=== PATIENT | female | born 1945 | race Caucasian/White ===

== ENCOUNTER 2019-07-28 21:42 | Emergency (ER) | payer MEDICARE, SELFPAY ==
--- NOTE | ~2019-07-28 | XR_ITS ---
EXAMINATION: XR chest 2V DATE: 07/28/2019 23:05 INDICATION: Hypertension. TECHNIQUE: Frontal and lateral views of the chest were obtained. COMPARISON: None. FINDINGS: The chest demonstrates clear lungs without pneumonia, pleural effusion, or pneumothorax. Th e heart size is normal. IMPRESSION: 1. No acute cardiopulmonary disease. Reviewed, dictated and finalized at location A.
[2019-07-28 21:43] VITALS: BP 195/81; PULSE 81; RESP 16; TEMP 37.2; O2SAT 100
[2019-07-28 21:55] VITALS: PULSE 71; RESP 16; O2SAT 100
--- NOTE | 2019-07-28 22:01 | ED.GENADULT ---
HPI - General Adult General Chief complaint: Recheck/Abnormal Lab/Rx Stated complaint: not feeling well, blood pressure of the charts Time Seen by Provider: 07/28/19 22:00 Source: patient and family Mode of arrival: ambulatory Limitations: no limitations History of Present Illness HPI narrative: Patient is a 74-year-old female who presents for evaluation of feeling unwell earlier this evening, when she took her blood pressure at home she noticed it was elevated. Patient does not have a history of hypertension, states that her blood pressure typically runs in the 1 teens to 120s. She has never been on medication for hypertension. Patient states she denies any head, chest pain, lightheadedness, dizziness, palpitations, abdominal pain or shoulder pain. No shortness of breath. Patient states she feels somewhat jittery and stressed, but denies any other symptoms. Review of Systems Review of Systems: Narrative: CONSTITUTIONAL: Denies fever CARDIOVASCULAR: Denies chest pain RESPIRATORY: Denies cough or dyspnea. GASTROINTESTINAL: Denies abdominal pain SKIN: Denies rash MUSCULOSKELETAL: Denies back pain NEUROLOGIC: Denies headache PMFSH Past Medical History Medical History (Updated 07/28/19 @ 23:58 by Sammie Villatoro MD) Anemia Osteoporosis Social History Social History (Updated 07/28/19 @ 22:33 by Sammie Villatoro MD) Smoking status: Never smoker Substance use: never Living arrangements: with family Occupation/Education: retired Gender identity (if verbalized by the patient): Female Exam Narrative: Exam Narrative: GENERAL: Awake, alert, conversant HEAD: Normocephalic, atraumatic. EYES: PERRLA and EOMI. ENT: Nares clear, no rhinorrhea or epistaxis. Mucous membranes moist. NECK: Supple. CHEST: No respiratory distress, breathing even and non labored HEART: Regular rate, sinus rhythm ABDOMEN:Non distended, non tender EXTREMITIES: Normal range of motion. No edema. SKIN: Warm, dry, no rash. NEURO:No focal deficits. Alert and oriented x3, ambulatory with a narrow base, steady gait. Course Vital Signs Vital signs: Vital Signs Temperature 37.2 C 07/28/19 21:43 Pulse Rate 81 07/28/19 21:43 Respiratory Rate 16 07/28/19 21:43 Blood Pressure 195/81 H 07/28/19 21:43 Pulse Oximetry 100 07/28/19 21:43 Temperature 37.2 C 07/28/19 21:43 Pulse Rate 69 07/28/19 23:25 Respiratory Rate 16 07/28/19 23:25 Blood Pressure 148/82 H 07/28/19 23:25 Pulse Oximetry 99 07/28/19 23:25 Medical Decision Making MDM Narrative Medical decision making narrative: Patient presented to the emergency department for evaluation of high blood pressure readings at home. At the time of assessment, patient is hemodynamically stable with elevated blood pressure readings. These down trended after a short period of observation without medications. Patient without signs of malignant hypertension, no symptoms that would be consistent with hypertensive crisis. No acute kidney injury, no proteinuria or elevation in troponin. Patient may follow-up with her primary care provider and discuss her blood pressure management with her physician. Vital Signs Vital Signs: Vital Signs Temperature 37.2 C 07/28/19 21:43 Pulse Rate 81 07/28/19 21:43 Respiratory Rate 16 07/28/19 21:43 Blood Pressure 195/81 H 07/28/19 21:43 Pulse Oximetry 100 07/28/19 21:43 Temperature 37.2 C 07/28/19 21:43 Pulse Rate 69 07/28/19 23:25 Respiratory Rate 16 07/28/19 23:25 Blood Pressure 148/82 H 07/28/19 23:25 Pulse Oximetry 99 07/28/19 23:25 Lab Data Lab results reviewed: Yes I reviewed the patient's lab results. Result diagrams: 07/28/19 22:48 07/28/19 22:48 Labs: Lab Results 07/28/19 07/28/19 07/28/19 Range/Units 22:48 22:48 22:48 WBC 4.5 (4.5-10.0) K/mm3 RBC 4.17 L (4.2-5.4) M/mm3 Hgb 12.6 (12.0-15.0) g/dL Hct 39.0 (37.0-47.0) % MCV 93.5 (80-
[2019-07-28 22:19] VITALS: BP 182/82; PULSE 69; RESP 16; O2SAT 99
--- NOTE | 2019-07-28 22:31 | ECG_ITS ---
Measurements Intervals [employer] Rate: 75 P: 32 WI: 132 QRS: -13 QRSD: 89 T: 73 QT: 377 QTc: 423 Interpretive Statements SINUS RHYTHM DELAYED PRECORDIAL R/S TRANSITION NONSPECIFIC ST & T-WAVE ABNORMALITY- HIGH LATERAL LEADS BORDERLINE ECG Electronically Signed On 07-29-2019 7:06:39 CDT by Priyank Cardoza D.O.
[2019-07-28 22:52] LABS: Basophils Percent Auto 0.9 % (0.2-1.2); Eosinophils Absolute Auto 0.1 K/mm3 (0-0.3); Hemoglobin 12.6 g/dL (12.0-15.0); Immature Granulocyte Absolute 0.01 K/mm3 (0.00-0.031); Immature Granulocyte Percent A 0.2 % (0-0.5); Lymphocytes Absolute Auto 1.33 K/mm3 (0.9-3.2); Lymphocytes Percent Auto 29.8 % (18.3-44.2); Mean Corpuscular HGB Conc 32.3 g/dl (32-36); Mean Corpuscular Hemoglobin 30.2 pg (26-34); Mean Corpuscular Volume 93.5 fl (80-100); Mean Platelet Volume 10.4 fl (7.4-10.4); Monocytes Absolute Auto 0.4 K/mm3 (0.1-0.6); Monocytes Percent Auto 8.9 % (2.6-8.5); Neutrophils Absolute Auto 2.6 K/mm3 (1.3-6.7); Neutrophils Percent Auto 58.2 % (45.5-73.1); Platelet Count Result 239 k/mm3 (150-375); Red Blood Count 4.17 M/mm3 (4.2-5.4); Red Cell Distribution Width 12.9 % (11.5-14.5); White Blood Count 4.5 K/mm3 (4.5-10.0)
[2019-07-28 23:03] LABS: INR 0.9; Partial Thromboplastin Time 25.7 SECONDS (22.3-36.8); Prothrombin Time 12.2 Seconds (11.1-14.7)
[2019-07-28 23:06] LABS: Blood Urea Nitrogen 22 mg/dL (7-17); Calcium 9.2 mg/dL (8.4-10.2); Carbon Dioxide 24 mmol/L (22-30); Chloride 107 mmol/L (98-107); Estimated Glomerular Filt Rate > 60; Glucose 103 mg/dL (65-105); Potassium 3.9 mmol/L (3.4-5.0); Sodium 140 mmol/L (137-145)
[2019-07-28 23:16] LABS: Add Urine Microscopic? YES; Appearance Urine Clear (Clear); Bacteria Urine Trace /hpf; Bilirubin Urine Negative (Negative); Blood Urine Negative (Negative); Color Urine Colorless (Yellow); Glucose Urine UA Negative (Negative); Ketones Urine Negative (Negative); Leukocyte Esterase Ur 2+ LEU/UL (Negative); Mucus Urine Rare /lpf; Nitrate Urine Negative (Negative); Protein Urine Negative (Negative); RBC Urine 0-2 /hpf (0-2); Specific Grav Ur 1.006 (1.001-1.035); Squamous Epithelial Cell Urine Rare /hpf (Few); Urobilinogen Urine Negative mg/dL (<2.0)
[2019-07-28 23:18] LABS: Troponin I < 0.012 ng/mL (0.000-0.034)
[2019-07-28 23:25] VITALS: BP 148/82; PULSE 69; RESP 16; O2SAT 99
[2019-07-29 00:26] VITALS: BP 142/80; PULSE 71; RESP 16; TEMP 36.6; O2SAT 99
== END 2019-07-29 00:26 | disposition home or self-care (01) ==
PROVIDERS: Emergency Provider Emergency Medicine
DX: I10 Essential (primary) hypertension (principal); M81.0 Age-related osteoporosis without current pathological fracture; Z86.2 Personal history of diseases of the blood and blood-forming organs and certain disorders involving the immune mechanism; R94.31 Abnormal electrocardiogram [ECG] [EKG]; R82.998 Other abnormal findings in urine
CPT/HCPCS: 36415; 71046; 80048; 81001; 84484; 85025; 85610; 85730; 87086; 93005; 99284